=== PATIENT | female | born 1970 | race African-American/Black ===

== ENCOUNTER 2019-01-27 11:27 | Emergency (ER) | payer OTHER ==
[~2019-01-27] VITALS: Ht 170.2 cm; Wt 83.9 kg
[~2019-01-27 11:27] MED LIST: AMBIEN 10 MG TA10 MG PO; BENAZEPRIL HCL10 MG PO; CALCIUM 500 +1 EAC5 PO; HYDROCHLOROTHIA25 M1; MULTIVITAMINS1 EAC7 PO; TORADOL 10 MG T10 MG PO; VALIUM5 MG PO
[2019-01-27] MEDS ORDERED: CONTRAVE ER 8-1 EACH PO (11:43)
[2019-01-27 13:11] VITALS: BP 138/91
== END 2019-01-27 13:12 | disposition home or self-care (01) ==
LOC: M.ERS 11:27
DX: M25.461 Effusion, right knee (principal); M25.561 Pain in right knee; I10 Essential (primary) hypertension; Z90.721 Acquired absence of ovaries, unilateral; Z88.1 Allergy status to other antibiotic agents

== ENCOUNTER → 2019-02-03 | Outpatient (CLI) | payer OTHER ==
[~2019-02-03] MED LIST changes: +CONTRAVE ER 8-1 EACH PO
== END ==
LOC: M.MRI 13:07
DX: M25.461 Effusion, right knee (principal); M17.11 Unilateral primary osteoarthritis, right knee; M25.761 Osteophyte, right knee

== ENCOUNTER 2019-05-23 14:58 | Emergency (ER) | payer OTHER ==
[~2019-05-23] VITALS: Ht 170.2 cm; Wt 88.5 kg
[2019-05-23] MEDS ORDERED: HYDROCHLOROTH12.5 M1 PO (15:09)
[2019-05-23] MEDS ORDERED: INTERMEZZO3.5 MG SUBLING (15:09)
[2019-05-23 15:42] LABS: ABSOLUTE EOSINOPHILS 0.1 thou/uL (0.0-0.7); ABSOLUTE LYMPHOCYTES 1.3 thou/uL (0.8-5.3); ABSOLUTE MONOCYTES 0.4 thou/uL (0.0-1.2); ABSOLUTE NEUTROPHILS 2.2 thou/uL (1.6-8.1); BASOPHILS 0.8 %; EOSINOPHILS 2.8 %; HEMATOCRIT 45.8 % (37.0-47.0); HEMOGLOBIN 15.9 gm/dL (12.0-15.0); LYMPHOCYTES 33.1 %; MCH 29.6 pg (26.0-34.0); MCHC 34.7 g/dL (28.0-37.0); MCV 85.4 fL (80.0-100.0); MONOCYTES 9.6 %; MPV 7.8 fl. (7.2-11.1); NUCLEATED RBCS 0 /100WBC; PLATELET COUNT* 371 thou/uL (150-400); POLYS 53.7 %; RBC 5.36 mil/uL (4.20-5.00); RDW-CV 13.3 % (10.5-14.5)
[2019-05-23 15:54] LABS: CALCIUM 9.5 mg/dL (8.5-10.1); CREATININE 0.7 mg/dL (0.6-1.3); POTASSIUM 4.3 mmol/L (3.5-5.1)
[2019-05-23 16:06] LABS: ALBUMIN 4.1 g/dL (3.4-5.0); MAGNESIUM 2.2 mg/dL (1.8-2.4); TOTAL BILIRUBIN 0.7 mg/dL (<0.1-1.0)
[2019-05-23 18:01] VITALS: BP 133/97
--- NOTE | 2019-05-27 13:56 | EKG ---
[place] [address] ELECTROCARDIOGRAM REPORT Name: PHU HINOJOSA Room: [facility]#: [id number] Admission: 05/23/19 Attend Phys: Discharge: 05/23/19 Date of : 70 Date of Service: 05/23/19 1504 Report #: [id number] THIS REPORT FOR: cc: Beryl Martinez MD, Katrina MD Blick, David R. MD [facility] ~ THIS REPORT FOR: //name// [facility] ED Test Date: 2019-05-23 Test Time: 15:04:44 Pat Name: PHU HINOJOSA Department: Room: Gender: F Manager Of [employer] Services: : 1970 Requested By: Antoine Keller Order Number: [id number] MD: Alpesh Obrien Measurements Intervals [place] Rate: 91 P: 44 LA: 143 QRS: 21 QRSD: 94 T: 43 QT: 367 QTc: 452 Interpretive Statements Sinus rhythm Borderline T abnormalities, anterior leads Compared to ECG 09/05/2015 17:21:17 no change Electronically Signed On 05-24-2019 11:01:47 GROWTH HACKER by Alpesh Obrien [email or web address] <ELECTRONICALLY SIGNED> By: Alpesh Obrien MD, FAC 05/24/19 1101 1504 1504 Alpesh Obrien MD, FAC /EPI
== END 2019-05-23 18:07 | disposition home or self-care (01) ==
LOC: M.ERS 14:58
PROVIDERS: Emergency Medicine Emergency Medical Services
DX: M94.0 Chondrocostal junction syndrome [Tietze] (principal); J20.9 Acute bronchitis, unspecified; I10 Essential (primary) hypertension; Z90.721 Acquired absence of ovaries, unilateral; Z88.0 Allergy status to penicillin; Z88.1 Allergy status to other antibiotic agents

== ENCOUNTER 2021-03-27 00:32 | Emergency (ER) | payer OTHER ==
[~2021-03-27] VITALS: Ht 170.2 cm; Wt 85.3 kg
[~2021-03-27 00:32] MED LIST changes: +HYDROCHLOROTH12.5 M1 PO; +INTERMEZZO3.5 MG PO
[2021-03-27] MEDS ORDERED: NORVASC 2.5 MG2.5 M1 PO (00:53)
[2021-03-27 01:21] LABS: INFLUENZA A ANTIGEN Negative (Negative); INFLUENZA B ANTIGEN Negative (Negative)
[2021-03-27 01:56] LABS: ABSOLUTE MONOCYTES 0.3 thou/uL (0.0-1.2); ABSOLUTE NEUTROPHILS 1.6 thou/uL (1.6-8.1); MCHC 33.7 g/dL (28.0-37.0); WBC 2.7 thou/uL (4.0-11.0)
[2021-03-27 01:58] LABS: ABSOLUTE LYMPHOCYTES 0.8 thou/uL (0.8-5.3); BASOPHILS 0.2 %; EOSINOPHILS 0.4 %; HEMATOCRIT 43.6 % (37.0-47.0); HEMOGLOBIN 14.7 gm/dL (12.0-15.0); LYMPHOCYTES 30.5 %; MCH 28.9 pg (26.0-34.0); MCV 85.9 fL (80.0-100.0); MONOCYTES 10.9 %; NUCLEATED RBCS 0 /100WBC; PLATELET COUNT* 189 thou/uL (150-400); RBC 5.08 mil/uL (4.20-5.00); RDW-CV 13.6 % (10.5-14.5)
[2021-03-27 02:04] LABS: CALCIUM 8.6 mg/dL (8.5-10.1); CREATININE 0.8 mg/dL (0.6-1.3)
[2021-03-27 02:08] LABS: POTASSIUM 2.6 mmol/L (3.5-5.1)
[2021-03-27 02:09] LABS: ALBUMIN 3.4 g/dL (3.4-5.0); TOTAL BILIRUBIN 0.3 mg/dL (<0.1-1.0); TOTAL PROTEIN 7.6 g/dL (6.4-8.2)
[2021-03-27] MEDS ORDERED: KLOR-CON 1010 MEQ PO (04:29)
[2021-03-27] MEDS ORDERED: ZPAK PO (04:29)
[2021-03-27] MEDS ORDERED: PREDNISONE50 MG PO (04:29)
[2021-03-27 05:44] VITALS: BP 126/87
--- NOTE | 2021-03-27 15:30 | EKG ---
[place] [address] ELECTROCARDIOGRAM REPORT Name: PHU HINOJOSA Room: [facility]#: [id number] Admission: 03/27/21 Attend Phys: Discharge: 03/27/21 Date of : 70 Date of Service: 03/27/21 0055 Report #: [id number] THIS REPORT FOR: //name// [facility] ED Test Date: 2021-03-27 Test Time: 00:55:44 Pat Name: PHU HINOJOSA Department: Room: Gender: Entry Level Marketing Assistant: JAZMINE : 1970 Requested By: Flaquita Law Order Number: [id number] MD: Kwabena Russ Measurements Intervals [place] Rate: 82 P: 41 SD: 151 QRS: 4 QRSD: 96 T: 36 QT: 385 QTc: 450 Interpretive Statements Sinus rhythm Compared to ECG 05/23/2019 15:04:44 T-wave abnormality no longer present Electronically Signed On 03-27-2021 15:30:45 STRAIN TECHNICIAN by Kwabena Russ [email or web address] <ELECTRONICALLY SIGNED> By: Kwabena Russ MD, [facility] 03/27/21 1530 0055 0055 Kwabena Russ MD, [facility] /EPI
== END 2021-03-27 05:46 | disposition home or self-care (01) ==
LOC: M.ERS 00:32
PROVIDERS: Personal Emergency Response Attendant
DX: U07.1 COVID-19 (principal); E86.0 Dehydration; E87.6 Hypokalemia; I10 Essential (primary) hypertension; Z98.890 Other specified postprocedural states; Z79.899 Other long term (current) drug therapy; Z88.0 Allergy status to penicillin